=== PATIENT | female | born 1960 | race Caucasian/White ===

== ENCOUNTER → 2016-11-09 | Outpatient (REF) | payer OTHER | LOC: M LABNEURO 16:26 | PROVIDERS: ATTEND Physician Assistant Medical | DX: G50.0 Trigeminal neuralgia (principal) ==

== ENCOUNTER → 2016-11-24 | Outpatient (REF) | payer OTHER | LOC: M LABNEURO 09:53 | PROVIDERS: ATTEND Physician Assistant Medical | DX: D50.0 Iron deficiency anemia secondary to blood loss (chronic) (principal) ==

== ENCOUNTER → 2016-12-15 | Outpatient (REF) | payer OTHER | LOC: M LABNEURO 09:09 | PROVIDERS: ATTEND Physician Assistant Medical | DX: G50.0 Trigeminal neuralgia (principal) ==